=== PATIENT | male | born 1955 | race African-American/Black ===

== ENCOUNTER 2018-07-18 14:34 | Emergency (ER) | payer MEDICAID ==
[~2018-07-18] VITALS: Ht 180.3 cm; Wt 78.0 kg
[~2018-07-18 14:34] MED LIST: LISI10TA; MULTIVITAMIN
[2018-07-18] MEDS ORDERED: HYDROCODONE/ACETAMINOPHEN 5/325MG TABLET PO ONE (16:00)
[2018-07-18] MEDS ORDERED: ONDANSETRON 4MG ODT PO ONE (16:00)
[2018-07-18 16:30] LABS: CLARITY URINE CLEAR (CLEAR); COLOR URINE YELLOW (YELLOW); KETONES URINE NEGATIVE (NEGATIVE); LEUKOCYTE ESTERASE URINE 1+ (NEGATIVE); NITRITE URINE NEGATIVE (NEGATIVE); OCCULT BLOOD URINE NEGATIVE (NEGATIVE); PROTEIN URINE TRACE (NEGATIVE); SPECIFIC GRAVITY URINE 1.014 (1.005-1.030); UROBILINOGEN URINE 0.2 E.U./dL (0.2-1.0)
[2018-07-18 16:56] LABS: PHENCYCLIDINE URINE SCREEN NEGATIVE (NEGATIVE)
[2018-07-18 16:57] LABS: *AMPHETAMINES SCREEN URINE NEGATIVE (NEGATIVE); *BENZODIAZEPINES SCREEN URINE NEGATIVE (NEGATIVE); *COCAINE SCREEN URINE PRESUMTIVE POSITIVE (NEGATIVE); CANNABINOID URINE SCREEN PRESUMTIVE POSITIVE (NEGATIVE); METHADONE URINE SCREEN NEGATIVE (NEGATIVE); OPIATES URINE SCREEN NEGATIVE (NEGATIVE)
[2018-07-18 16:59] LABS: *BARBITURATES SCREEN URINE NEGATIVE (NEGATIVE)
[2018-07-18 19:08] VITALS: BP 138/90
== END 2018-07-18 19:09 | disposition home or self-care (01) ==
LOC: ER 14:34
DX: N43.3 Hydrocele, unspecified (principal); N39.0 Urinary tract infection, site not specified; F14.10 Cocaine abuse, uncomplicated; I10 Essential (primary) hypertension
CPT/HCPCS: 76870; 80305; 81003; 87086; 93976; 99284; Q0162